=== PATIENT | male | born 1995 | race Asian ===

== ENCOUNTER 2017-11-17 19:05 | Emergency (ER) | payer OTHER ==
[~2017-11-17] VITALS: Ht 152.4 cm; Wt 49.9 kg
[2017-11-17] MEDS ORDERED: ACETAMINOPHEN 325 MG TABLET PO ONE (21:15)
--- NOTE | 2017-11-17 21:26 | NUR ---
Patient discharged to home in stable conditon. Written and verbal after care instructions given. Patient verbalizes understanding of instructions.
[2017-11-17] MEDS ORDERED: ACETAMINOPHEN 325 MG TABLET ONE (21:35)
== END 2017-11-17 22:00 | disposition home or self-care (01) ==
LOC: ER 19:05
DX: J11.1 Influenza due to unidentified influenza virus with other respiratory manifestations (principal); J45.909 Unspecified asthma, uncomplicated
CPT/HCPCS: 99283; A4663

== ENCOUNTER 2018-10-21 17:03 | Emergency (ER) | payer OTHER ==
[~2018-10-21] VITALS: Ht 152.4 cm; Wt 52.2 kg
--- NOTE | 2018-10-21 17:22 | NUR ---
Patient discharged to home in stable conditon. Written and verbal after care instructions given. Patient verbalizes understanding of instructions. rx x1 given.Pt ambulatory with a steady gait
[2018-10-21 17:23] VITALS: BP 118/77
== END 2018-10-21 17:27 | disposition home or self-care (01) ==
LOC: ER 17:04
DX: J11.1 Influenza due to unidentified influenza virus with other respiratory manifestations (principal); B34.9 Viral infection, unspecified; J45.909 Unspecified asthma, uncomplicated
CPT/HCPCS: A4663

== ENCOUNTER 2018-12-13 16:29 | Emergency (ER) | payer OTHER ==
[~2018-12-13] VITALS: Ht 154.9 cm; Wt 54.9 kg
[2018-12-13] MEDS ORDERED: KETOROLAC TROMETHAMINE 30 MG INJ ONE (16:52)
[2018-12-13] MEDS ORDERED: KETOROLAC TROMETHAMINE 30 MG INJ IM ONE (17:00)
--- NOTE | 2018-12-13 17:02 | NUR ---
BIB EMS FOR C/O ANDOMINAL/RIB AREA PAIN. HE IS A/A/O X3. FATHER AT BEDSIDE. VITAL SIGNS STABLE.
--- NOTE | 2018-12-13 17:52 | NUR ---
PATIENT STATES PAIN HAS DIMINSHED. DC AND FOLLOW UP INSTRUCTIONS GIVEN AND EXPLAINED TO PATIENT AND FATHER WHO STATE THEY UNDERSTAND ALL INSTRUCTIONS.
[2018-12-13 17:53] VITALS: BP 133/79
== END 2018-12-13 17:54 | disposition home or self-care (01) ==
LOC: ER 16:29
DX: R07.89 Other chest pain (principal); J45.909 Unspecified asthma, uncomplicated
CPT/HCPCS: 71046; 93005; 96372; 99283; J1885; A4663

== ENCOUNTER 2019-10-20 16:50 | Emergency (ER) | payer OTHER ==
[~2019-10-20] VITALS: Ht 152.4 cm; Wt 52.2 kg
--- NOTE | 2019-10-20 17:21 | NUR ---
Patient discharged to home in stable conditon. Written and verbal after care instructions given to patient. Patient verbalized understanding & compliance of instructions.
== END 2019-10-20 17:22 | disposition home or self-care (01) ==
LOC: ER 16:52
DX: J06.9 Acute upper respiratory infection, unspecified (principal); J45.909 Unspecified asthma, uncomplicated
CPT/HCPCS: A4663

== ENCOUNTER 2020-07-01 09:33 | Emergency (ER) | payer OTHER ==
[~2020-07-01] VITALS: Ht 157.5 cm; Wt 61.2 kg
--- NOTE | 2020-07-01 10:02 | NUR ---
DR Diez seen and examined the pt.
[2020-07-01 10:08] VITALS: BP 129/76
--- NOTE | 2020-07-01 10:08 | NUR ---
Patient discharged to home in stable condition. Written and verbal after care instructions given. Patient verbalizes understanding of instructions. Stressed follow up or return to ER for worsening s/s.
== END 2020-07-01 10:09 | disposition home or self-care (01) ==
LOC: ER 09:33
DX: L01.00 Impetigo, unspecified (principal); B95.8 Unspecified staphylococcus as the cause of diseases classified elsewhere; J45.909 Unspecified asthma, uncomplicated; G80.9 Cerebral palsy, unspecified; Z98.2 Presence of cerebrospinal fluid drainage device
CPT/HCPCS: A4663

== ENCOUNTER 2021-01-07 20:09 | Emergency (ER) | payer OTHER ==
[~2021-01-07] VITALS: Ht 152.4 cm; Wt 49.9 kg
--- NOTE | 2021-01-07 20:30 | NUR ---
MD MELENDEZ in room to assess patient.
[2021-01-07 20:40] VITALS: BP 146/92
--- NOTE | 2021-01-07 20:40 | NUR ---
Patient discharged to home in stable condition. Written and verbal after care instructions given. Patient verbalizes understanding of instructions. Stressed follow up or return to ER for worsening s/s. Patient ambulates without difficulty, received Rx, took all belongings upon departure.
== END 2021-01-07 20:40 | disposition home or self-care (01) ==
LOC: ER 20:10
DX: B37.2 Candidiasis of skin and nail (principal); G80.9 Cerebral palsy, unspecified; Z98.2 Presence of cerebrospinal fluid drainage device; J45.909 Unspecified asthma, uncomplicated
CPT/HCPCS: A4663

== ENCOUNTER 2021-04-18 20:42 | Emergency (ER) | payer OTHER ==
[~2021-04-18] VITALS: Ht 152.4 cm; Wt 54.4 kg
--- NOTE | 2021-04-18 21:30 | NUR ---
taken for ct scan
[2021-04-18 21:50] LABS: BASOPHILS # (AUTO) 0.1 K/uL (0.0-8.0); BASOPHILS % (AUTO) 1.1 % (0.0-2.0); EOSINOPHILS # (AUTO) 0.1 K/uL (0.0-0.7); EOSINOPHILS % (AUTO) 0.8 % (0.0-7.0); HEMATOCRIT 47.5 % (36.7-47.1); HEMOGLOBIN 16.2 g/dL (12.5-16.3); LYMPHOCYTES # (AUTO) 2.2 K/uL (20.0-40.0); LYMPHOCYTES % (AUTO) 27.9 % (20.5-51.5); MEAN CORPUSCULAR HEMOGLOBIN 30.7 uug (23.8-33.4); MEAN CORPUSCULAR HGB CONC 34 g/dL (32.5-36.3); MONOCYTES # (AUTO) 0.9 K/uL (2.0-10.0); NEUTROPHILS # (AUTO) 4.7 K/uL (1.8-8.9); NEUTROPHILS % (AUTO) 59.2 % (38.5-71.5); PLATELET COUNT (AUTO) 297 K/uL (152-348); RED BLOOD CELL COUNT(AUTO) 5.27 MIL/uL (4.06-5.63)
[2021-04-18 21:56] LABS: CREATININE 0.9 mg/dL (0.6-1.3); POTASSIUM 3.7 mmol/L (3.5-5.1)
--- NOTE | 2021-04-18 22:00 | NUR ---
back on ct scan
[2021-04-18 22:02] LABS: BILIRUBIN,DIRECT 0.3 mg/dL (0.0-0.2); BILIRUBIN,TOTAL 1.3 mg/dL (0.2-1.0); TOTAL PROTEIN, SERUM 7.3 g/dL (6.4-8.2)
[2021-04-18] MEDS ORDERED: POLY17PO4 PO (22:41)
--- NOTE | 2021-04-18 22:48 | NUR ---
informed patient of findings of ct scan ,
--- NOTE | 2021-04-18 22:49 | NUR ---
ambulatory m presciption given and verbalizes understanding , , accompanied by family member
== END 2021-04-18 22:50 | disposition home or self-care (01) ==
LOC: ER 20:44
DX: R10.9 Unspecified abdominal pain (principal); K59.00 Constipation, unspecified; K80.20 Calculus of gallbladder without cholecystitis without obstruction; G80.9 Cerebral palsy, unspecified; Z98.2 Presence of cerebrospinal fluid drainage device; J45.909 Unspecified asthma, uncomplicated; Z90.49 Acquired absence of other specified parts of digestive tract; Z82.49 Family history of ischemic heart disease and other diseases of the circulatory system
CPT/HCPCS: 36415; 83690; 85025; A4663

== ENCOUNTER 2022-05-26 12:27 | Emergency (ER) | payer OTHER ==
[~2022-05-26] VITALS: Ht 152.4 cm; Wt 54.4 kg
[~2022-05-26 12:27] MED LIST: POLY17PO4 PO
[2022-05-26] MEDS ORDERED: ACETAMINOPHEN 325 MG TABLET PO ONE (12:45)
--- NOTE | 2022-05-26 12:49 | NUR ---
COVID SWAB TEST OBTAINED AND SENT TO LAB. PT SEEN AND EVALUATED BY DR CHILD. Addendum: 05/26/22 at 1256 by JESSIE PT MEDICATED FOR FEVER
[2022-05-26] MEDS ORDERED: ACETAMINOPHEN ES 500 MG TABLET ONE (12:51)
--- NOTE | 2022-05-26 14:45 | NUR ---
TEST RESULTS REVIEWED WITH PATIENT AND CASSE WORKER; RACHID PRECAUTION AND HOME CARE. DISCHarged in stable condition.
[2022-05-26 14:46] VITALS: BP 118/74
== END 2022-05-26 14:47 | disposition home or self-care (01) ==
LOC: ER 12:27
DX: U07.1 COVID-19 (principal); G80.9 Cerebral palsy, unspecified; Z98.2 Presence of cerebrospinal fluid drainage device; J45.909 Unspecified asthma, uncomplicated
CPT/HCPCS: 87426; 99283; C9803; U0003; 36415; A4663; A9150

== ENCOUNTER 2022-07-28 16:12 | Emergency (ER) | payer OTHER ==
[~2022-07-28] VITALS: Ht 152.4 cm; Wt 52.2 kg
[2022-07-28 17:46] LABS: HEMATOCRIT 46.6 % (36.7-47.1); MEAN CORPUSCULAR HEMOGLOBIN 30.1 uug (23.8-33.4); MEAN CORPUSCULAR VOLUME 88.1 fL (73.0-96.2); PLATELET COUNT (AUTO) 334 K/uL (152-348)
[2022-07-28 18:08] LABS: BILIRUBIN,DIRECT 0.3 mg/dL (0.0-0.2); BILIRUBIN,TOTAL 1.4 mg/dL (0.2-1.0); CREATININE 0.9 mg/dL (0.6-1.3)
[2022-07-28 18:12] LABS: POTASSIUM 2.5 mmol/L (3.5-5.1)
[2022-07-28] MEDS ORDERED: POTASSIUM CHLORIDE 20 MEQ TAB.PRT.SR PO ONE (18:30)
[2022-07-28] MEDS ORDERED: IV NORMAL SALINE 1000 ML BAG IV ONE (18:30)
--- NOTE | 2022-07-28 19:20 | NUR ---
PT RESTING COMFORTABLY IN BED. 22G IV STARTED IN LEFT WRIST. HAND OFF REPORT GIVEN TO Blu palma.
[2022-07-28] MEDS ORDERED: MAGNESIUM SULFATE/D5W 200 ML ONE (20:04)
[2022-07-28] MEDS: MAGNESIUM SULFATE/D5W 100 ML IV SCH ×2 (20:24→20:30)
[2022-07-28] MEDS: POTASSIUM CHLORIDE 50 ML IV SCH ×3 (20:42→23:32)
[2022-07-29 01:45] LABS: CREATININE 0.9 mg/dL (0.6-1.3)
[2022-07-29 01:57] LABS: POTASSIUM 2.8 mmol/L (3.5-5.1)
[2022-07-29] MEDS ORDERED: POTASSIUM CHLORIDE 20 MEQ TAB.PRT.SR PO ONE (02:00)
[2022-07-29] MEDS ORDERED: POTASSIUM CHLORIDE 20 MEQ TAB.PRT.SR ONE (02:01)
--- NOTE | 2022-07-29 02:12 | NUR ---
after 2 gm mag and 30k iv pt was redrawn on bmp and k came back at 2.8 dr. santa requested for the 4th k to be given and he ordered additional po k and will redraw after this. pt made aware he also spoke with Dr. Santa. orders implemented.
[2022-07-29] MEDS: POTASSIUM CHLORIDE 50 ML IV SCH ×2 (02:14→03:41)
--- NOTE | 2022-07-29 04:43 | NUR ---
pt k level is 3.5 Dr. santa at bedside speaking with the pt.
[2022-07-29 05:14] VITALS: BP 133/88
== END 2022-07-29 05:14 | disposition home or self-care (01) ==
LOC: ER 16:24
DX: R20.2 Paresthesia of skin (principal); E87.6 Hypokalemia; G80.9 Cerebral palsy, unspecified; Z98.2 Presence of cerebrospinal fluid drainage device; J45.909 Unspecified asthma, uncomplicated; Z91.81 History of falling; R03.0 Elevated blood-pressure reading, without diagnosis of hypertension; R79.89 Other specified abnormal findings of blood chemistry
CPT/HCPCS: 99285; 96365; 96366; 80076; 80048 ×2; 82550; 83690; 85025; 36415 ×2; 93005; 96368; 84132; J3475; J7040; A4663

== ENCOUNTER 2022-12-21 01:45 | Inpatient (IN) | payer OTHER ==
[~2022-12-21] VITALS: Ht 152.4 cm; Wt 54.4 kg
[2022-12-21] MEDS ORDERED: IV NORMAL SALINE 500 ML BAG IV ONE ×2 (02:45→06:30)
[2022-12-21 02:53] LABS: HEMATOCRIT 47.6 % (36.7-47.1); MEAN CORPUSCULAR HEMOGLOBIN 30.5 uug (23.8-33.4); MEAN CORPUSCULAR VOLUME 87.8 fL (73.0-96.2); PLATELET COUNT (AUTO) 334 K/uL (152-348)
[2022-12-21 03:04] LABS: POTASSIUM 4.1 mmol/L (3.5-5.1)
[2022-12-21 03:10] LABS: BILIRUBIN,TOTAL 0.8 mg/dL (0.2-1.0); TOTAL PROTEIN, SERUM 8.3 g/dL (6.4-8.2)
[2022-12-21] MEDS ORDERED: IV NORMAL SALINE 250 ML IV ONE (03:15)
[2022-12-21] MEDS ORDERED: IOHEXOL 300MG/ML 100 ML INFUS..BTL ONE (03:15)
[2022-12-21] MEDS ORDERED: SWABABLE VALVE TRANSFER SET EA MC ONE (03:15)
[2022-12-21] MEDS ORDERED: METRONIDAZOLE 500 MG/NS 100 ML PIGGYBACK IV ONE (04:45)
[2022-12-21] MEDS ORDERED: CEFTRIAXONE 1 G in IV DEXTROSE 5% 50 ML IV ONE (04:45)
[2022-12-21] MEDS ORDERED: CEFTRIAXONE /D5W 50ML IVPB **ER PYXIS IV ONE (04:46)
[2022-12-21] MEDS ORDERED: METRONIDAZOLE 500 MG/NS 100ML 100 ML IV ONE (04:46)
--- NOTE | 2022-12-21 05:31 | NUR ---
Called [facility] for a panel call & to page Lizette TALBERT.
[2022-12-21] MEDS ORDERED: LIDOCAINE HCL 1% 20 ML VIAL IJ ONE (05:45)
[2022-12-21] MEDS ORDERED: LIDOCAINE HCL 1% 20 ML VIAL ONE (05:50)
--- NOTE | 2022-12-21 06:04 | NUR ---
Called [facility] to page Lizette.
[2022-12-21] MEDS ORDERED: ONDANSETRON 4 MG/2 ML VIAL ONE (06:24)
[2022-12-21] MEDS ORDERED: MORPHINE SULFATE 4 MG/1 ML DISP.SYRIN ONE (06:25)
--- NOTE | 2022-12-21 06:26 | NUR ---
Dr. Blanco on panel call with Moise Bauer NP.
[2022-12-21] MEDS ORDERED: MORPHINE SULFATE 4 MG/1 ML DISP.SYRIN IV ONE (06:30)
[2022-12-21] MEDS ORDERED: ONDANSETRON 4 MG/2 ML VIAL IV ONE (06:30)
[2022-12-21] MEDS ORDERED: ONDANSETRON 4 MG/2 ML VIAL IV PRN (06:45)
[2022-12-21] MEDS ORDERED: ACETAMINOPHEN 325 MG TABLET PO PRN (06:45)
[2022-12-21] MEDS ORDERED: REMEDY ESSENTIAL ZINC PASTE 113 GM TP PRN (06:45)
[2022-12-21] MEDS ORDERED: MAGNESIUM HYDROXIDE 30 ML LIQUID UDC PO PRN (06:45)
[2022-12-21] MEDS ORDERED: HYDROCODONE/APAP 5-325MG TABLET PO PRN (06:45)
--- NOTE | 2022-12-21 07:30 | NUR ---
Received report from Adelso NUGENT.
--- NOTE | 2022-12-21 07:30 | NUR ---
Received report from Adelso NUGENT.
--- NOTE | 2022-12-21 13:42 | NUR ---
Seen by Dr. Des Mcleod. Will be discharged today per Dr. Mcleod.
[2022-12-21] MEDS ORDERED: METRONIDAZOLE 500 MG/NS 100ML 500 MG in PREMIXED 1 EACH IV SCH (14:00)
[2022-12-21] MEDS ORDERED: SULF1TAB48 PO (14:33)
--- NOTE | 2022-12-21 15:12 | NUR ---
Gave pt discharge paper from Des Mcleod MD's report.
--- NOTE | 2022-12-21 15:14 | NUR ---
Pt in stable condition, V/S WNL, afebrile, AOx4. Pt discharged to home in stable condition. Written and verbal after care instructions given. Pt verbalizes understanding of instructions. Stressed follow up or return to ER for worsening s/s.
[2022-12-21 15:15] VITALS: BP 124/76
[2022-12-22] MEDS ORDERED: CEFTRIAXONE 1 G in IV DEXTROSE 5% 50 ML IV SCH (06:00)
== END 2022-12-21 15:15 | disposition home or self-care (01) | DRG 385 ==
LOC: ER 01:48 → TRANSITION 06:25
PROVIDERS: ADMIT Nurse Practitioner Acute Care; ATTEND Internal Medicine
DX: L73.8 Other specified follicular disorders (principal); L03.315 Cellulitis of perineum; G80.8 Other cerebral palsy; J45.909 Unspecified asthma, uncomplicated; Z98.2 Presence of cerebrospinal fluid drainage device; Z20.822 Contact with and (suspected) exposure to COVID-19
CPT/HCPCS: 36415; 83605; 85025; 85651; 86140; 87040; A4663; G0378; J0696; J2270; J2405; J3490; J7040; Q9967

== ENCOUNTER 2022-12-22 23:16 | Emergency (ER) | payer OTHER ==
[~2022-12-22] VITALS: Ht 152.4 cm; Wt 52.2 kg
[~2022-12-22 23:16] MED LIST changes: -POLY17PO4 PO; +SULF1TAB48 PO
--- NOTE | 2022-12-23 01:20 | NUR ---
Pt. to room #4b for eval of abcess healing to groin. in for eval.
[2022-12-23] MEDS ORDERED: IV NS 1000 ML 1,000 ML IV ONE (01:30)
--- NOTE | 2022-12-23 01:40 | NUR ---
ADDENDUM: Intravenous End Time Documentation: Normal saline 1 liter (IV-WO) : start time: 0140 ; end time: 0240 : IV site: PIV # 20 RFA Port # 1
--- NOTE | 2022-12-23 01:40 | NUR ---
#20 guage heplock placed to right forarm of pt. w/o incident. 0.9 NS 1000cc given per MD order.
--- NOTE | 2022-12-23 02:54 | NUR ---
MARKG completed and sharriiwed . Pt. patrice d/c'd intact. prepared for discharge.
[2022-12-23 02:56] VITALS: BP 120/80
[2022-12-23] MEDS ORDERED: POLY30DR OP (17:53)
== END 2022-12-23 02:56 | disposition home or self-care (01) ==
LOC: ER 23:20
DX: L02.211 Cutaneous abscess of abdominal wall (principal); G80.9 Cerebral palsy, unspecified; Z98.2 Presence of cerebrospinal fluid drainage device; N40.0 Benign prostatic hyperplasia without lower urinary tract symptoms; K62.89 Other specified diseases of anus and rectum; J45.909 Unspecified asthma, uncomplicated; R00.0 Tachycardia, unspecified
CPT/HCPCS: 99284; 96360; 93005; J7040; A4663

== ENCOUNTER 2022-12-23 16:46 | Emergency (ER) | payer OTHER ==
[~2022-12-23] VITALS: Ht 152.4 cm; Wt 52.2 kg
[2022-12-23] MEDS ORDERED: POLY30DR OP (17:53)
[2022-12-23 18:06] VITALS: BP 136/81
== END 2022-12-23 18:07 | disposition home or self-care (01) ==
LOC: ER 16:46
DX: H04.122 Dry eye syndrome of left lacrimal gland (principal); R03.0 Elevated blood-pressure reading, without diagnosis of hypertension; G80.9 Cerebral palsy, unspecified; J45.909 Unspecified asthma, uncomplicated
CPT/HCPCS: A4663

== ENCOUNTER 2023-02-12 11:23 | Emergency (ER) | payer OTHER ==
[~2023-02-12] VITALS: Ht 152.4 cm; Wt 54.4 kg
[~2023-02-12 11:23] MED LIST changes: +POLY30DR OP
--- NOTE | 2023-02-12 11:41 | NUR ---
1) 45 year old female Admission Report & A ssessment: 1) A 35year old admitted c/o of (i) Left stomach fold absess - old absess site (ii) no pain jut reddish looking (iii) Pain score 0/10 (vi) No sign of distress, SOB, or non verbal signs of pain at the time of this report (vii) also complaining of fungal rash between groing - but resolving. (viii) seen in ER recently for the same spot - absess compalint 2) Will continue to assess, plan, implemement, and evaluate accordingly. 3) Await to be seen by ER MD.
[2023-02-12] MEDS ORDERED: MUPI22OI2 TP (11:42)
[2023-02-12] MEDS ORDERED: DOXY-326 PO (11:42)
--- NOTE | 2023-02-12 12:00 | NUR ---
Reviewed by MD: 1) Diagnosis - Folliculitis 2) Healing groin thrush 3) Home with [place] prescription.
--- NOTE | 2023-02-12 12:01 | NUR ---
1) Discharged home with electronic prescription. 2) Clinically stable at the time of this report.
[2023-02-12 12:14] VITALS: BP 134/68
== END 2023-02-12 12:14 | disposition home or self-care (01) ==
LOC: ER 11:23
DX: L73.9 Follicular disorder, unspecified (principal); G80.9 Cerebral palsy, unspecified; Z98.2 Presence of cerebrospinal fluid drainage device
CPT/HCPCS: A4663

== ENCOUNTER 2023-07-09 09:25 | Emergency (ER) | payer OTHER ==
[~2023-07-09] VITALS: Ht 152.4 cm; Wt 54.4 kg
[~2023-07-09 09:25] MED LIST changes: +DOXY-326 PO; +MUPI22OI2 TP
[2023-07-09] MEDS ORDERED: SULF1TAB48 PO (10:21)
[2023-07-09 10:28] VITALS: BP 131/88; TEMP 97.8; O2SAT 98
== END 2023-07-09 10:28 | disposition home or self-care (01) ==
LOC: ER 09:25
DX: L02.415 Cutaneous abscess of right lower limb (principal); L03.115 Cellulitis of right lower limb; J45.909 Unspecified asthma, uncomplicated; Z79.2 Long term (current) use of antibiotics; Z79.899 Other long term (current) drug therapy
CPT/HCPCS: A4663

== ENCOUNTER 2023-07-23 10:36 | Emergency (ER) | payer OTHER ==
[~2023-07-23] VITALS: Ht 152.4 cm; Wt 54.4 kg
[2023-07-23] MEDS ORDERED: SULFAMETH/TRIMETH 800/160 MG TABLET PO ONE (11:30)
[2023-07-23] MEDS ORDERED: SULF1TAB48 PO (11:34)
[2023-07-23] MEDS ORDERED: SULFAMETH/TRIMETH 800/160 MG TABLET ONE (11:42)
[2023-07-23 12:01] VITALS: BP 134/84; O2SAT 98
== END 2023-07-23 12:02 | disposition home or self-care (01) ==
LOC: ER 10:36
DX: N49.2 Inflammatory disorders of scrotum (principal); J45.909 Unspecified asthma, uncomplicated; Z79.2 Long term (current) use of antibiotics; Z79.899 Other long term (current) drug therapy
CPT/HCPCS: A4663

== ENCOUNTER 2023-08-29 10:10 | Emergency (ER) | payer OTHER ==
[~2023-08-29] VITALS: Ht 152.4 cm; Wt 59.0 kg
[2023-08-29] MEDS ORDERED: SULF1TAB48 PO (10:39)
[2023-08-29] MEDS ORDERED: MUPI22OI2 TP (10:39)
[2023-08-29 10:45] VITALS: BP 118/78; O2SAT 99
== END 2023-08-29 10:46 | disposition home or self-care (01) ==
LOC: ER 10:12
DX: L01.00 Impetigo, unspecified (principal); B95.61 Methicillin susceptible Staphylococcus aureus infection as the cause of diseases classified elsewhere; J45.909 Unspecified asthma, uncomplicated; Z79.899 Other long term (current) drug therapy
CPT/HCPCS: A4663

== ENCOUNTER 2024-05-14 19:58 | Emergency (ER) | payer OTHER ==
[~2024-05-14] VITALS: Ht 152.4 cm; Wt 59.0 kg
[~2024-05-14 19:58] MED LIST changes: +AZIT250T13 PO; +CHLO473M3 PO; +PRED20TA PO
[2024-05-14 21:33] VITALS: BP 110/83; TEMP 98.6; O2SAT 99
== END 2024-05-14 21:33 | disposition home or self-care (01) ==
LOC: ER 20:21
DX: Z00.00 Encounter for general adult medical examination without abnormal findings (principal); J45.909 Unspecified asthma, uncomplicated; Z79.899 Other long term (current) drug therapy
CPT/HCPCS: A4606; A4663

== ENCOUNTER 2024-06-14 11:05 | Emergency (ER) | payer OTHER ==
[~2024-06-14] VITALS: Ht 152.4 cm; Wt 59.0 kg
[2024-06-14] MEDS ORDERED: SULF1TAB48 PO (14:03)
[2024-06-14] MEDS: SULFAMETH/TRIMETH 800/160 MG TABLET PO ONE (14:18)
[2024-06-14] MEDS: BACITRACIN ZINC OINT 15 GM TUBE TOP ONE (14:18)
[2024-06-14 14:24] VITALS: BP 125/78; TEMP 97.1; O2SAT 99
== END 2024-06-14 14:25 | disposition home or self-care (01) ==
LOC: ER 11:05
DX: L73.9 Follicular disorder, unspecified (principal); J45.909 Unspecified asthma, uncomplicated; Z98.890 Other specified postprocedural states; Z79.899 Other long term (current) drug therapy; Z79.52 Long term (current) use of systemic steroids
CPT/HCPCS: A4606; A4663

== ENCOUNTER 2024-07-29 11:51 | Emergency (ER) | payer OTHER ==
[~2024-07-29] VITALS: Ht 152.4 cm; Wt 59.0 kg
[2024-07-29 12:03] VITALS: O2SAT 100
== END 2024-07-29 12:32 | disposition home or self-care (01) ==
LOC: ER 11:52
DX: R23.8 Other skin changes (principal); J45.909 Unspecified asthma, uncomplicated; Z79.1 Long term (current) use of non-steroidal anti-inflammatories (NSAID); Z98.890 Other specified postprocedural states; Z79.899 Other long term (current) drug therapy
CPT/HCPCS: A4606; A4663

== ENCOUNTER 2025-04-15 09:15 | Emergency (ER) | payer OTHER ==
[~2025-04-15] VITALS: Ht 152.4 cm; Wt 59.0 kg
[2025-04-15 09:18] VITALS: O2SAT 99
[2025-04-15] MEDS ORDERED: PODO3.5S TP (09:37)
== END 2025-04-15 09:46 | disposition home or self-care (01) ==
LOC: ER 09:16
DX: N48.89 Other specified disorders of penis (principal); J45.909 Unspecified asthma, uncomplicated; Z79.52 Long term (current) use of systemic steroids; Z88.7 Allergy status to serum and vaccine; Z86.69 Personal history of other diseases of the nervous system and sense organs
CPT/HCPCS: A4606; A4663

== ENCOUNTER 2025-08-07 16:53 | Emergency (ER) | payer OTHER ==
[~2025-08-07] VITALS: Ht 152.4 cm; Wt 59.0 kg
[~2025-08-07 16:53] MED LIST changes: +PODO3.5S TP
[2025-08-07 16:54] VITALS: BP 138/92; O2SAT 96
[2025-08-07] MEDS ORDERED: NEOMY/BACITRA/POLYMYXIN B OINT UD PACKET TP ONE (17:24)
[2025-08-07] MEDS ORDERED: KETOROLAC TROMETHAMINE 15 MG INJ ONE (17:24)
[2025-08-07] MEDS: NEOMY/BACITRA/POLYMYXIN B OINT UD PACKET TP ONE (17:25)
[2025-08-07] MEDS: KETOROLAC TROMETHAMINE 15 MG INJ IM ONE (17:25)
[2025-08-07] MEDS ORDERED: IBUP-1955 PO (17:50)
[2025-08-07] MEDS ORDERED: LIDO30AD10 TP (17:50)
== END 2025-08-07 17:59 | disposition home or self-care (01) ==
LOC: ER 16:56
DX: S43.402A Unspecified sprain of left shoulder joint, initial encounter (principal); S10.11XA Abrasion of throat, initial encounter; R07.89 Other chest pain; G80.9 Cerebral palsy, unspecified; J45.909 Unspecified asthma, uncomplicated; Z79.52 Long term (current) use of systemic steroids; Z88.7 Allergy status to serum and vaccine; Z98.2 Presence of cerebrospinal fluid drainage device; W18.30XA Fall on same level, unspecified, initial encounter; Y93.89 Activity, other specified; Y92.89 Other specified places as the place of occurrence of the external cause; Y99.8 Other external cause status
CPT/HCPCS: 99283; 96372; J1885; A4606; A4663